=== PATIENT | female | born 1980 | race African-American/Black ===

== ENCOUNTER 2020-03-10 08:05 | Emergency (ER) | payer MEDICAID, OTHER ==
[~2020-03-10] VITALS: Ht 162.6 cm; Wt 91.0 kg
[~2020-03-10 08:05] MED LIST: PREN-95
[2020-03-10] MEDS ORDERED: FLUORESCEIN SODIUM 1MG/STRIP RIGHTEYE ONE (08:45)
[2020-03-10] MEDS ORDERED: IBUPROFEN 600MG TABLET PO ONE (08:45)
[2020-03-10] MEDS ORDERED: TETRACAINE 0.5% OPHTH DROPS 4ML RIGHTEYE ONE (08:45)
[2020-03-10 09:19] VITALS: BP 117/86
== END 2020-03-10 09:20 | disposition home or self-care (01) ==
LOC: ER 08:05
DX: S05.11XA Contusion of eyeball and orbital tissues, right eye, initial encounter (principal); S70.362A Insect bite (nonvenomous), left thigh, initial encounter; S70.361A Insect bite (nonvenomous), right thigh, initial encounter; Z88.8 Allergy status to other drugs, medicaments and biological substances; Z90.710 Acquired absence of both cervix and uterus; Y00.XXXA Assault by blunt object, initial encounter; W57.XXXA Bitten or stung by nonvenomous insect and other nonvenomous arthropods, initial encounter; Y93.89 Activity, other specified; Y92.59 Other trade areas as the place of occurrence of the external cause
CPT/HCPCS: 99283

== ENCOUNTER 2025-05-01 01:16 | Emergency (ER) | payer MEDICAID, OTHER ==
[~2025-05-01] VITALS: Ht 157.5 cm; Wt 84.0 kg
[2025-05-01 01:19] VITALS: BP 143/94; PULSE 97; RESP 18; TEMP 36.5; O2SAT 98
[2025-05-01] MEDS: KETOROLAC 15MG/ML VIAL IM ONE (02:27)
[2025-05-01] MEDS: LIDOCAINE 5% PATCH TOP SCH (02:28)
[2025-05-01] MEDS ORDERED: LIDO-53 TP (04:16)
[2025-05-01] MEDS ORDERED: NAPR-1176 MT (04:16)
== END 2025-05-01 05:07 | disposition home or self-care (01) ==
LOC: ER 01:16
DX: M25.562 Pain in left knee (principal); Z90.710 Acquired absence of both cervix and uterus; Z79.1 Long term (current) use of non-steroidal anti-inflammatories (NSAID); W01.0XXA Fall on same level from slipping, tripping and stumbling without subsequent striking against object, initial encounter; Y93.01 Activity, walking, marching and hiking; Y92.000 Kitchen of unspecified non-institutional (private) residence as the place of occurrence of the external cause; Y99.8 Other external cause status
CPT/HCPCS: 99283; 29505; 73562; 96372; J1885